=== PATIENT | female | born 1970 | race Caucasian/White ===

== ENCOUNTER 2023-03-10 06:12 | Day surgery (SDC) | payer OTHER, SELFPAY ==
--- NOTE | 2023-02-22 16:37 | PCM.HP.BLA ---
History and Physical Date of Admission: 03/09/23 HPI: The patient is a 52 year old female presenting for pre-operative visit. She is scheduled for Hysteroscopy D&C, for thickened endometrium and PMB on 03/09/23. Procedure discussed along with risks, benefits and complications. Other alternatives discussed for management. Consent form signed? Yes. ? ? PAST MEDICAL HISTORY PAST MEDICAL HISTORY Diagnosis Date ? H/O section ? ? x2 ? Vitamin D deficiency ? ? ? PAST SURGICAL HISTORY PAST SURGICAL HISTORY Procedure Laterality Date ? ANESTH, SECTION ? ? ? SECTION HX ? ? ? TUBAL LIGATION HX ? CURRENT MEDICATIONS Current Outpatient Medications Medication Sig Dispense Refill ? buPROPion SR (WELLBUTRIN SR) 150 mg 12 hr tablet Take 1 tablet by mouth twice daily. 180 tablet 3 ? ergocalciferol 50,000 unit capsule (VITAMIN D2, DRISDOL) Take 1 capsule by mouth one time a week. 12 capsule 2 ? cyclobenzaprine (FLEXERIL) 10 mg tablet Take 1 tablet by mouth twice daily as needed. 60 tablet 2 ? Azelaic Acid 15 % gel Apply to affected areas of face once daily every night 50 g 3 ? multivitamin (VITAMIN DAILY ORAL) Take 4,000 mg by mouth once daily. Vitamin D ? ? ? cetirizine (ZYRTEC) 10 mg tablet Take 10 mg by mouth once daily as needed. ? ? ? traMADol (ULTRAM) 50 mg tablet Take 50 mg by mouth. ? ? ? triamcinolone acetonide (KENALOG) 0.1 % ointment Thin layer to affected area BID prn, rash ? ? ? clotrimazole-betamethasone (LOTRISONE) cream as needed. ? ? ? metroNIDAZOLE 0.75 % cream Apply to affected area twice daily. 45 g 2 ? No current facility-administered medications for this visit. ? ? ALLERGIES: Patient has no known allergies. ? PERSONAL HISTORY: SOCIAL HISTORY Social History ? Tobacco Use ? Smoking status: Never ? Smokeless tobacco: Never Vaping Use ? Vaping Use: Never used Substance Use Topics ? Alcohol use: No ? Drug use: No ? FAMILY HISTORY: FAMILY HISTORY FAMILY HISTORY Problem Relation Age of Onset ? Arthritis Mother ? ? Obesity Mother ? ? Cancer Father ? ? Arthritis Father ? ? Obesity Brother ? ? No Ocular Disease Other ? ? None Other ? ? ? REVIEW OF SYMPTOMS: GENERAL: denies fevers or chills ENDOCRINOLOGY: has not been on steroids Cardiology : denies palpitations or chest pain Respiratory: denies SOB or cough Hematology: denies history of prolonged bleeding or easy bruising or VTE Allergy: Denies history of personal or family history of allergy to anesthesia ? PHYSICAL EXAMINATION: ? VITALS: Last menstrual period 08/07/2016. ? GENERAL: The patient is well nourished, well hydrated in no acute distress. , The patient is oriented to time, place, and person. NECK: Supple. No lynphadenopathy, normal thyroid, no thyromegaly. LUNGS: Clear to auscultation bilaterally. no wheezes, rhonchi or rales HEART: Regular rate and rhythm, Normal heart sounds, and No murmurs or gallops ?Pelvic US 11/23/22 Uterus size: 8.5 x 3.8 x 3.4 cm ?? ? -Orientation: Anteverted ?? ? -Myometrium: Normal sonographic appearance. ?? ? -Endometrial echo complex: 0.7 cm ?? ? -Cervix: normal Right ovary: Questionably seen, in a high location. ?1.4 x 1.8 cm cystic structure are seen near the uterine fundus which may relate to the right ovary. Left ovary: Not seen Pelvis free fluid: None. Ectopic location of the left kidney again seen with mild hydronephrosis IMPRESSION: PMB, thickened endometrium ? ? PLAN: The risks/benefits/alternatives and personal involved for the planned hysteroscopy D&C were reviewed with the patient. Her questions were answered to her satisfaction and she desires to proceed. Consent was signed. I reviewed with her postop instructions and expectations. ? I have reviewed and updated past medical and surgical history, medications and allergies Assessment & Plan Assessment/Plan (1) PMB (postmenopausal bleeding): (2) Endometrial thickening on ultrasound:
[2023-03-10] VITALS (7 sets, daily range): BP systolic 110–123; BP diastolic 67–79; PULSE 66–76; RESP 16–18; TEMP 36.2–36.8; O2SAT 93–98; BMI 34.1
[2023-03-10 06:52] LABS: Internal QC Validated? YES +Cl - CLEAR BKGD; Pregnancy, Urine Negative Negative
[2023-03-10 06:52] LABS: Hematocrit 40.9 % (37-47); Hemoglobin 13.1 g/dL (12.0-15.0); Mean Corpuscular Hgb 29.2 pg (27.0-32.0); Mean Corpuscular Volume 91.3 fL (81-99); Mean Platelet Vol. 9.7 fl (6.2-12.0); Platelet Count 479 K/mm3 (150-450); RBC Distribution Width CV 13.1 % (11.6-14.6); RBC Distribution Width SD 44.1 fl (35.1-43.9); Red Blood Count 4.48 M/mm3 (4.2-5.4)
[2023-03-10] MEDS: Lactated Ringers 1,000 ML 15 ML IV (06:58)
[2023-03-10] MEDS: Acetaminophen 500 MG Tablet 1000 MG PO (06:59)
[2023-03-10] MEDS: Ketorolac 30 MG/ML Syringe IV (06:59)
--- NOTE | 2023-03-10 07:30 | EMB_PTH ---
PATIENT: CONCEPCION LOFTON LOC: [facility] – [place] U#:[id number] AGE/SX: 52/F ROOM: RE03/10/[address]: Dr. Emelyn Minor MD : [id number] BED: DIS: 03/10/2023 SPEC #: [id number] RECD: 03/10/23 09:54 STATUS: ANMOL REJudith #: [id number] MIKE: 03/10/23 07:[address]: Emelyn Minor DEPT: SURGICAL PATHOLOGY RECD BY: Rima Anguiano ENTERED: 03/10/23 10:33 SP TYPE: ENDOM BX/C EDGAR DR: Sharyn Delgado, VERONIKA Tissues: Endometrium, NOS Procedures: Surgery Specimen Level IV HEADER OPERATION: Hysteroscopy, D & C PRE-OP DIAGNOSIS: Postmenopausal bleeding; endometrial thickening on ultrasound TISSUE SUBMITTED: Endometrial curettings MICROSCOPIC DIAGNOSIS Endometrium, biopsy: Weakly proliferative endometrium. Fragments of endocervix with squamous metaplasia and mild chronic inflammation. Fragments of benign squamous mucosa. AM:therese 03/13/2023 MICROSCOPIC DESCRIPTION Slides are reviewed. GROSS DESCRIPTION Received in fixative is one container labeled with the patient's name and designated endometrial curettings. The specimen consists of multiple irregular fragments of red-diaz soft tissue that in aggregate measure 3.0 x 2.2 x 0.2 cm. The specimen is totally submitted in one cassette. / AM:therese 03/10/2023 TC:5 CPT: 19079
[2023-03-10] MEDS: Lidocaine 1% /Epi 1:100 (20ml) 20 ML Vial (07:35)
[2023-03-10] MEDS: Lubricating Jelly 60 GM Tube 30 GM (07:35)
--- NOTE | 2023-03-10 07:38 | PCM.DC ---
Discharge Instructions Diet Discharge Diet: No restrictions Activity Discharge Activity: [address] (03/11/23) May shower in (days): 1 May resume sexual activity in: 1-2 weeks and 2 weeks Lifting Restrictions: none Dressing / Incision Call your doctor if your incision/area has: Sudden Increased Bleeding and Foul Smelling Discharge Call your doctor if you observe: Fever of 101 or Higher and Using more than 1 pad per hour (for 2 hrs in a row) Follow Up Care Please Follow Up With: Emelyn Minor MD When: Only as needed. We will contact you next week with the pathology results. Call [phone] to make an appointment or with any concerns or send a [employer] message. Test Results: Test results from this visit will be discussed in further detail at your follow-up appointment, if applicable. Discharge Plan Admission Primary Reason for Your Visit: Hysteroscopy Dilation and Curettage Attending Provider: Emelyn Minor Primary Care Provider: Sharyn Delgado NP Discharge Orders/Prescriptions Prescriptions: No Action bupropion HCl [Wellbutrin SR] 150 mg Tablet Sustained-Release 12 Hr 150 mg PO BID Motrin 300 mg Tablet 600 mg PO Q6H PRN (Reason: Pain) acetaminophen 325 mg Capsule 325 mg PO Q6H PRN (Reason: Pain) Referrals / Follow Up: Sharyn Delgado NP, CHILD CARE EDUCATION COORDINATOR-C [Primary Care Provider] - Disposition Disposition (needs filled in before D/C Order can be placed): Home, Self Care
--- NOTE | 2023-03-10 07:58 | PCM.OPRPT ---
Problems Associated Problem List Diagnoses (1) PMB (postmenopausal bleeding): (2) Endometrial thickening on ultrasound: Report of Operation Date of Procedure: 03/10/23 Pre-Operative Diagnosis: PMB, thickened endometrium on ultrasound Post-Operative Diagnosis: same Surgery/Procedure Performed:: hysteroscopy D&C Description of Surgical Findings:: thin atrophic endometrium w/ some erythema, no polyps or fibroids, normal tubal ostia, normal cervix and vagina Surgeon: Emelyn Minor division order analyst: None Type of Anesthesia: MAC/Supplemental/Local Anesthesiologist: Avtar Ellington Special Medications: none Specimen's removed: endometrial curettings Drains: none Estimated Blood Loss (mL): 5 Fluids Replaced: 500 Description of Procedure: The patient was taken to the OR where she was prepped and draped in dorsal lithotomy position. The weighted speculum was placed in the vagina and the anterior lip of the cervix was grasped with a single-tooth tenaculum. A paracervical block was administered with [1% lidocaine with 1-100,000 epinephrine solution]. The cervix was dilated serially with Hegar dilators. The symphion 7mm hysteroscope was placed into the uterine cavity and the above findings were noted. Bilateral tubal ostia [were] identified. The hysteroscope was removed. A gentle sharp curettage was done of the uterine cavity. The instruments were removed from the vagina. The specimen was handed off and sent to pathology. All sponge and needle counts were correct. Vaginal sweep was performed by me. The patient was awakened and taken to the recovery room in stable condition. Hysteroscopic fluid deficit 100 cc of normal saline Grafts/Implants Used: none Procedure Start Time: 07:45 Procedure Stop Time: 07:50 Complications none Admit VTE Documentation VTE Present on Admission: No VTE Mechan Device Prophylaxis: SCD's VTE Pharm Prophylaxis ordered?: No Reason prophylaxis not ordered:: Treatment Not Indicated
[2023-03-10] MEDS: oxyCODONE 5 MG Tablet PO (08:48)
== END 2023-03-10 09:10 | disposition home or self-care (01) ==
LOC: SDC 06:18 → AC 06:20
PROVIDERS: PCP Nurse Practitioner Family; Referring Provider Obstetrics & Gynecology; Visit Provider Obstetrics & Gynecology
PROC: 0UB98ZZ Excision of Uterus, Via Natural or Artificial Opening Endoscopic (ICD-10-PCS; CPT 58558; principal; 2023-03-10 07:15)
DX: N72 Inflammatory disease of cervix uteri (principal); N95.0 Postmenopausal bleeding; Z79.899 Other long term (current) drug therapy
CPT/HCPCS: 58558; 00952; 81025; 85027; 88305; J7120; J2405